=== PATIENT | male | born 1980 | race Caucasian/White ===

== ENCOUNTER 2019-04-29 11:38 | Outpatient (CLI) | payer SELFPAY | END 2019-04-29 12:27 | disposition home or self-care (01) | LOC: ORTHO 11:38 | PROVIDERS: ATTEND Orthopaedic Surgery | DX: S52.021A Displaced fracture of olecranon process without intraarticular extension of right ulna, initial encounter for closed fracture (principal); W19.XXXA Unspecified fall, initial encounter; Y93.89 Activity, other specified; Y92.89 Other specified places as the place of occurrence of the external cause; Y99.8 Other external cause status | CPT/HCPCS: 73080; G0463 ==